=== PATIENT | female | born 1995 | race Caucasian/White ===

== ENCOUNTER 2020-09-05 15:12 | Emergency (ER) | payer BC ==
[2020-09-05] MEDS ORDERED: HYDROXYZINE PAMOATE 25 MG CAPSULE PO ONE (15:32)
--- NOTE | 2020-09-05 15:37 | ER Document Report ---
ED Medical Screen (RME) - General Chief Complaint: Anxiety Stated Complaint: ANXIETY Time Seen by Provider: 09/05/20 15:25 - HPI Notes: 09/05/20 15:33 24-year-old female presents to ED for evaluation of anxiety attack starting tod ay. Patient states that she cannot recall a precipitating factor. Patient is somewhat vague in her answers. She feels like her whole body is shaking and she is somewhat short of breath. Denies concern for Covid. Patient's father who is with her states that she has become more withdrawn. 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 Notes that she has been unable to facilitate career advancement and has become more withdrawn due to life stressors. Denies SI/HI. Denies any drugs or alcohol. Reports that she has not been taking good care of herself while living on her own. - Related Data Allergies/Adverse Reactions: No Known Allergies Allergy (Unverified 09/05/20 15:30) Past Medical History - Social History Frequency of alcohol use: Occasional Physical Exam - Vital signs Vitals: Temp Pulse Resp BP Pulse Ox 98.1 F 117 H 22 H 140/101 H 98 09/05/20 15:16 09/05/20 15:16 09/05/20 15:16 09/05/20 15:16 09/05/20 15:16 General: No acute distress. Alert and oriented x3. Sitting comfortably in a stretcher. Skin: Intact without any jaundice, pallor, or erythema. Warm and dry. HEENT: Normocephalic, atraumatic. Pupils are equal round reactive to light and accommodation. Extraocular movements are intact. TMs without erythema or bulging. Canals are clear. Nares patent without any discharge. Teeth in good condition. Pharynx without erythema, edema, or exudates. No tonsillar enlargement. Uvula is midline. Airway is patent. Neck: Supple with no lymphadenopathy. Full range of motion. Heart: Regular rapid rate and rhythm. S1,S2. No murmurs, rubs, or gallops. Lungs: Clear to ausculation bilaterally. No wheezes, rhonchi, rales. Equal chest expansion. No retractions. Abdomen: Soft, nontender to palpation, nondistended. Positive bowel sounds in all 4 quadrants. No hepatosplenomegaly. No masses. No CVA tenderness bilaterally. Neuro: GCS 15. Moving all extremities without discomfort. Psych: Mood and affect flat Course - Vital Signs Vital signs: Temp Pulse Resp BP Pulse Ox 98.1 F 117 H 22 H 140/101 H 98 09/05/20 15:16 09/05/20 15:16 09/05/20 15:16 09/05/20 15:16 09/05/20 15:16
[2020-09-05 16:19] LABS: ABSOLUTE LYMPHOCYTES (AUTO) 1.5 10^3/uL (0.5-4.7); ABSOLUTE MONOCYTES (AUTO) 0.4 10^3/uL (0.1-1.4); ABSOLUTE NEUT (AUTO) 5.4 10^3/uL (1.7-8.2); BASOPHILS % (AUTO) 0.5 % (0-2); EOSINOPHILS % (AUTO) 0.5 % (0-6); HEMATOCRIT 40.4 % (36.0-47.0); HEMOGLOBIN 13.8 g/dL (12.0-15.5); LYMPHOCYTES % (AUTO) 20.2 % (13-45); MEAN CORPUSCULAR HEMOGLOBIN 31.4 pg (27.0-33.4); MEAN CORPUSCULAR HGB CONC 34.2 g/dL (32.0-36.0); MEAN CORPUSCULAR VOLUME 92 fl (80-97); MONOCYTES % (AUTO) 5.9 % (3-13); PLATELET COUNT 229 10^3/uL (150-450); RED BLOOD COUNT 4.41 10^6/uL (3.72-5.28); RED CELL DISTRIBUTION WIDTH 12.4 % (11.5-14.0); SEGMENTED NEUTROPHILS % (AUTO) 72.9 % (42-78); TOTAL CELLS COUNTED % (AUTO) 100 %; WHITE BLOOD COUNT 7.4 10^3/uL (4.0-10.5)
[2020-09-05 16:22] LABS: APPEARANCE,URINE SLIGHTLY-CLOUDY; BILIRUBIN,URINE NEGATIVE (NEGATIVE); COLOR,URINE YELLOW; GLUCOSE, URINE NEGATIVE (NEGATIVE); KETONES,URINE NEGATIVE (NEGATIVE); LEUKOCYTE ESTERASE,URINE SMALL (NEGATIVE); NITRITE,URINE NEGATIVE (NEGATIVE); PROTEIN,URINE NEGATIVE (NEGATIVE); URINE SPECIFIC GRAVITY 1.015
[2020-09-05 16:34] LABS: ALBUMIN 4.5 g/dL (3.5-5.0); ALKALINE PHOSPHATASE 67 U/L (38-126); ANION GAP 8 (5-19); ASPARTATE AMINO TRANSFERASE 24 U/L (14-36); BILIRUBIN,DIRECT 0.1 mg/dL (0.0-0.4); BILIRUBIN,TOTAL 0.8 mg/dL (0.2-1.3); BLOOD UREA NITROGEN 9 mg/dL (7-20); CALCIUM 9.7 mg/dL (8.4-10.2); CARBON DIOXIDE 26 mmol/L (22-30); CHLORIDE 104 mmol/L (98-107); GLUCOSE 102 mg/dL (75-110); TOTAL PROTEIN 7.3 g/dL (6.3-8.2)
[2020-09-05 16:37] LABS: ACETAMINOPHEN < 10 ug/mL (10-30); ALCOHOL < 10 mg/dL (NONE DETECTED); SALICYLATE < 1.0 mg/dL (2.0-20.0)
[2020-09-05 16:46] LABS: URINE AMPHETAMINES SCREEN NEGATIVE; URINE BARBITURATES SCREEN NEGATIVE; URINE BENZODIAZEPINES SCREEN NEGATIVE; URINE COCAINE SCREEN NEGATIVE; URINE MARIJUANA (THC) SCREEN NEGATIVE; URINE METHADONE SCREEN NEGATIVE; URINE PHENCYCLIDINE SCREEN NEGATIVE
--- NOTE | 2020-09-05 17:05 | ER Document Report ---
ED General <TREVINOFABIAN - Last Filed: 09/05/20 19:25> <MANPREET DUENAS - Last Filed: 09/05/20 21:42> - General Chief Complaint: Anxiety Stated Complaint: ANXIETY Time Seen by Provider: 09/05/20 15:25 Primary Care Provider: [facility] [Outside] - Follow up as needed [facility] [Outside] - Follow up as needed - HPI Notes: 24-year-old female presents with sensation of an anxiety attack. Patient states that she was at work today at the [employer]. She states that she had just watched [employer] press a conference. Afterward she felt symptoms of an anxiety attack. She felt pains in her body, felt that her arms were numb and she could not move her arms, she felt diffuse muscle spasms, shortness of breath. She states that she has had similar episodes to this in the past, however this is most severe in longest lasting. She has never been formally diagnosed with anxi ety, she has not seen any sort of outpatient therapist or psychiatrist. She received Atarax through triage, and reports she is feeling much better, she is almost symptom-free at this point. She reports that she is otherwise healthy. Her father is at bedside and expresses concern about her being withdrawn and not dealing with life stressors well. Patient and father state that they are here today to see behavioral health services. Denies suicidal ideations or any intent to self-harm. (MANPREET DUENAS) - Related Data Allergies/Adverse Reactions: No Known Allergies Allergy (Unverified 09/05/20 15:30) Past Medical History - General Information source: Patient - Social History Smoking Status: Never Smoker Frequency of alcohol use: Occasional Family History: Other - Bipolar disorder <MANPREET DUENAS - Last Filed: 09/05/20 21:42> Review of Systems - Review of Systems Constitutional: denies: Fever EENT: No symptoms reported Cardiovascular: Palpitations Respiratory: Short of breath Gastrointestinal: No symptoms reported Genitourinary: No symptoms reported Female Genitourinary: No symptoms reported Musculoskeletal: No symptoms reported Skin: No symptoms reported Hematologic/Lymphatic: No symptoms reported Neurological/Psychological: Anxiety. denies: Suicidal ideation <MANPREET DUENAS - Last Filed: 09/05/20 21:42> Physical Exam - General General appearance: Appears well, Alert In distress: None - HEENT Head: Normocephalic, Atraumatic Extraocular movements intact: Yes Pupils: PERRL - Respiratory Respiratory status: No: Labored, Tachypnea Breath sounds: Normal - Cardiovascular Rhythm: Regular Heart sounds: Normal auscultation Murmur: No - Abdominal Inspection: No: Obese - Extremities General upper extremity: Normal ROM General lower extremity: Normal ROM. No: Edema - Neurological Neuro grossly intact: Yes Cognition: Normal Orientation: AAOx4 Motor strength normal: LUE, RUE, LLE, RLE Sensory: Normal - Psychological Associated symptoms: Other - Good eye contact, not overtly anxious, normal speech, mood and affect congruent - Skin Skin Temperature: Warm <MANPREET DUENAS - Last Filed: 09/05/20 21:42> - Vital signs Vitals: Temp Pulse Resp BP Pulse Ox 98.1 F 117 H 22 H 140/101 H 98 09/05/20 15:16 09/05/20 15:16 09/05/20 15:16 09/05/20 15:16 09/05/20 15:16 Course - Laboratory Results Result Diagrams: 09/05/20 15:55 09/05/20 15:55 <FABIAN TREVINO - Last Filed: 09/05/20 19:25> - Laboratory Results Result Diagrams: 09/05/20 15:55 09/05/20 15:55 Critical Laboratory Results Reviewed: No Critical Results - Radiology Results Critical Radiology Results Reviewed: No Critical Results <MANPREET DUENAS - Last Filed: 09/05/20 21:42> - Re-evaluation Re-evalutation: 24-year-old female presents with symptoms suggestive of anxiety attack after watching [employer] breast conference today. No formal diagnosis of anxiety, but sounds like she probably has some underlying anxiety and has been going on for a few years. Currently denies suicidal ideations. However her and her father state that they would like to see behavioral health services today, consult placed. Patient is alert and oriented, hemodynamically stable, heart RRR, lungs are clear, does not appear overtly anxious on exam although she did receive Atarax in triage. Lab work grossly unremarkable. 09/05/20 20:10 Patient has been seen by behavioral health. The recommendation is to start Trileptal 300 mg a.m., 600 mg p.m. I did clarify this with behavioral health, apparently given that there is a strong family history of bipolar disorder this is an appropriate medication. Patient was updated on plan and given resources. Precautions given, stable at time of discharge. (MANPREET DUENAS) - Vital Signs Vital signs: Temp Pulse Resp BP Pulse Ox 98.1 F 88 18 138/88 H 99 09/05/20 15:16 09/05/20 20:30 09/05/20 20:30 09/05/20 20:30 09/05/20 20:30 - Laboratory Results Laboratory Results Interpreted: 09/05/20 09/05/20 15:45 15:55 Urine Urobilinogen 2.0 H Ur Leukocyte Esterase SMALL H Salicylates < 1.0 L Acetaminophen < 10 L - EKG Interpretation by Me Additional EKG results interpreted by me: EKG is interpreted by me. Sinus rhythm, rate 105. Narrow QRS, QTC within normal limits. No ST segment elevation or depression. Computer has interpreted as atrial flutter/fibrillation which is false (MANPREET DUENAS) Discharge <FABIAN TREVINO - Last Filed: 09/05/20 19:25> <MANPREET DUENAS - Last Filed: 09/05/20 21:42> - Discharge Clinical Impression: Anxiety Condition: Stable Disposition: HOME, SELF-CARE Instructions: Anxiety ([facility]) Additional Instructions: You have been evaluated by both medical and behavioral health teams and have been deemed appropriate for discharge. You have been started Trileptal 300mg every morning and 600mg every evening; please take as directed. You have also been provided the local resource list of area providers including mobile crisis contact information. Panic Attack The cause of panic attacks is unknown. Symptoms can include chest pain, shortness of breath, palpitations, sweats, and a sense of smothering or impending doom. In time, the panic attacks can lead to generalized anxiety and phobias. Because the symptoms can mimic heart attack, pulmonary embolism, and other serious diseases, the physician has evaluated you for these conditions. There is no evidence of a serious problem. An acute panic attack usually goes away by itself without treatment. A severe attack can be treated with medicine to calm you. Long-term, antidepressant medicines may help prevent attacks. Counselling can also be very beneficial in dealing with panic attacks. Panic attacks are less likely if you are getting regular exercise, proper diet, and plenty of sleep. It's normal for panic attacks to cause many frightening symptoms. However, you should call or return if your symptoms change significantly or if you are worsening. DEPRESSION: Your evaluation reveals that you have mental depression. While symptoms may be vague, they often include disturbance of sleep, fatigue, loss of appetite, and general loss of interest in life. While depression may be a side effect of drugs, or a reaction to a major change in your life, many cases have no known cause. If depression is acute, and related to a major loss in your life, you can expect it to clear completely with time. If you have been depressed a long time, are prone to repeated bouts of depression or low mood, or have been thinking of suicide, get help. Depression can be treated with anti-depressant medication and counselling. Long-term depression will often take a few weeks to clear, even with appropriate medication. Follow-up care is important. SUICIDAL IDEATION: Suicidal ideation is a common medical term for thoughts about suicide, wh ich may be as detailed as a formulated plan, without the suicidal act itself. Although most people who undergo suicidal ideation do not commit suicide, some go on to make suicide attempts. The range of suicidal ideation varies greatly from fleeting to detailed planning, role playing, and unsuccessful attempts. While thoughts about suicide are common, most people do not carry out serious actions to commit suicide. Based upon your evaluation and discussion with you, we do not believe you are currently at risk to act upon your thoughts of suicide. You have agreed to return to the Emergency Department, at any time, if you feel inclined to act upon your suicidal thoughts. Anxiety The physician feels that some of your health problems are being caused by anxiety. Anxiety affects your health in many ways. Anxiety alone can cause palpitations, sweats, chest pains, abdominal pains, shortness of breath, and headaches. It contributes to ulcer disease, high blood pressure, irritable bowel syndrome, and has been shown to cause flare-ups of many other diseases. Anxiety is not a simple disorder to treat. If the anxiety is due to recent life stresses, you may simply need time to "work through" the changes. If the anxiety is due to an underlying unhappiness with yourself or due to psychiatric disturbance, professional help will be needed. Your physician can refer you for further help if needed. Anti-anxiety medication is occasionally given if the stress is acute or if you are having trouble sleeping. Chronic or frequent use of these medications is not a good idea because the body becomes reliant on it, preventing you from dealing with life's normal stresses. FOLLOW-UP CARE: If you have been referred to a physician for follow-up care, call the physicians office for an appointment as you were instructed or within the next two days. If you experience worsening or a significant change in your symptoms, notify the physician immediately or return to the Emergency Department at any time for re-evaluation. Prescriptions: Oxcarbazepine [Trileptal] 300 mg PO ASDIR #180 tablet Referrals: [facility] [Outside] - Follow up as needed [facility] [Outside] - Follow up as needed
--- NOTE | 2020-09-05 17:39 | EKG REPORT ---
SEVERITY:- ABNORMAL ECG - SINUS TACHYCARDIA : Confirmed by: Ji Paz MD 05-Sep-2020 17:39:00
--- NOTE | 2020-09-05 19:36 | PSYCHOLOGICAL NOTE ---
Psych Note - Psych Note Date seen by psych provider: 09/05/20 Time seen by psych provider: 18:00 Psych Note: Reason for Consult: anxiety, panic attack Consent Permissions: none provided Patient arrived to [facility] ED via pov for concners of panic attack. Clinical Presentation: panic attack depression with passive suicidal ideation IVC Criteria per [place] GS 122C Dangerous to others Within the relevant past the individual No has inflicted or attempted to inflict or threatened to inflict serious bodily harm on another AND No that there is a reasonable probability that this conduct will be repeated as there is an absence of supervision or structure to prevent. OR No has acted in such a way as to create a substantial risk of serious bodily harm to another AND No that there is a reasonable probability that this conduct will be repeated as there is an absence of supervision or structure to prevent. OR No has engaged in extreme destruction of property AND NO that there is a reasonable probability that this conduct will be repeated as there is an absence of supervision or structure to prevent. Previous episodes of dangerousness to others, when applicable, may be considered when determining reasonable probability of future dangerous conduct. Clear, cogent, and convincing evidence that an individual has committed a homicide in the relevant past is prima facie evidence of dangerousness to others. Dangerous to self Within the relevant past the individual has done any of the following: acted in such a way as to show ALL of the following: No The individual would be unable without care, supervision, and the continued assistance of others not otherwise available, to exercise self- control, judgment, and discretion in the conduct of the individual's daily responsibilities and social relations or to satisfy the individual's need for nourishment, personal or medical care, penitentiary, or self-protection and safety. AND No There is a reasonable probability of the individual suffering serious physical debilitation within the near future unless adequate treatment is given. A showing of behavior that is grossly irrational, of actions that the individual is unable to control, of behavior that is grossly inappropriate to the situation, or of other evidence of severely impaired insight and judgment shall create a prima facie inference that the individual is unable to care for himself or herself. OR No has attempted suicide or threatened suicide AND No that there is a reasonable probability of suicide unless adequate treatment is given as there is an absence of supervision or structure to prevent suicide of patient who has made an attempt, serious gesture or threat. Patient reports passive suicidal ideation with no plan means or intent. Patient denies she wants to . OR No has mutilated himself or herself or attempted to mutilate himself or herself AND No that there is a reasonable probability of serious self-mutilation unless adequate treatment is given as there is an absence of supervision or structure to prevent. NOTE: Previous episodes of dangerousness to self, when applicable, may be considered when determining reasonable probability of physical debilitation, suicide, or self-mutilation. Medication recommendations per [facility] contracted psychiatrist are as follows: Trileptal 300mg every morning and 600mg every evening Impression\plan: Patient is cleared from acute psychiatric services. Dr. Martinez was consulted to care management of this patient; attending physicians in agreement with recommendations and disposition.
[2020-09-05 20:32] VITALS: BP 138/88
== END 2020-09-05 20:31 | disposition home or self-care (01) ==
LOC: ER 15:12
DX: F41.9 Anxiety disorder, unspecified (principal); R00.2 Palpitations; R06.02 Shortness of breath
CPT/HCPCS: 36415; 80053; 80307; 81001; 81025; 85025; 93005; 93010; 99284